=== PATIENT | female | born 1995 | race Caucasian/White ===

== ENCOUNTER 2024-01-14 11:21 | Emergency (ER) | payer BC, SELFPAY ==
[2024-01-14 11:25] VITALS: BP 143/103
[2024-01-14] MEDS: NSS 1000 IV (13:32)
[2024-01-14] MEDS: BENADRYL 25 MG IV (13:33)
[2024-01-14] MEDS: TORADOL 30 MG IV (13:33)
[2024-01-14] MEDS: REGLAN 10 MG IV (13:33)
--- NOTE | 2024-01-14 14:40 | ED.GENMED ---
History of Present Illness
General
Chief Complaint: Headache
Source: patient
Time Seen by Provider: 01/14/24 13:14
Travel History
Have you had any contact with someone who has COVID-19?: No
Do you have any symptoms of coronavirus? Fever > 100 degrees, chills, cough, shortness of breath, sore throat, loss of taste or smell, muscle aches, or headache?: No
History of Present Illness
History of Present Illness:
28-year-old female with past medical history of migraines presenting the emergency department for evaluation at the request of her neurologist for a migraine headache that started on Tuesday with after she had excellently hit the back of her head on
her car trunk on Tuesday. She states that during this time her headache is gradually worsened despite her usual migraine headaches including Ubrelvy. Patient gets Botox injections every 3 months as well. She has been here in the past for headaches
in the past. States she did not experience any loss consciousness, vomiting, visual changes with the head strike. Headache is fairly typical of her usual migraine.
Past History
Past History
ED Past Medical History: GERD, Psychiatric and Other (Migraine headaches, acne)
ED Past Surgical History: Appendectomy, Orthopedic (Knee surgery) and Tonsilectomy
Social History
Tobacco: Non-smoker
Alcohol: None
Drug: None
Personal: Single
Living: with family
Employment: Employed
Family History
Family History: Other (Noncontributory)
Phy Exam
Physical Exam
Physical Exam:
GENERAL: Alert , in no apparent distress
EYE: conjunctiva clear, Pupils 4 mm, EOMI
Head: Normocephalic atraumatic
NECK: Supple,
ENT: mmm.
LUNGS: no acute respiratory distress
NEUROLOGICAL: Alert and oriented x 3, ambulates with steady gait
SKIN: Warm and dry, skin intact.
MUSCULOSKELETAL: well perfused.
PSYCH: Normal and appropriate interaction.
Scores
Heart Failure Risk
Heart Failure Risk Score: Not Applicable
Heart Score for Chest Pain Patients
STEMI patient?: Not applicable
Withdrawal Assessment of Alcohol
Withdrawal Assessment Completed?: Not applicable
Course
Orders/Labs/Results
Orders:
Orders
01/14/24 13:23
0.9% Sodium Chloride 1000 ml [Nss] 1,000 ml IV BOLUS
Diphenhydramine [Benadryl] 25 mg IV NOW STA
Ketorolac [Toradol] 30 mg IV NOW STA
Metoclopramide [Reglan] 10 mg IV NOW STA
Vital Signs
Initial and Last Documented VS:
Initial Vital Signs
Temp Pulse Resp BP Pulse Ox
97.9 F 75 16 143/103 100
01/14/24 11:25 01/14/24 11:25 01/14/24 11:25 01/14/24 11:25 01/14/24 11:25
Last Documented Vital Signs
Temp Pulse Resp BP Pulse Ox
97.9 F 75 16 143/103 100
01/14/24 11:25 01/14/24 11:25 01/14/24 11:25 01/14/24 11:25 01/14/24 11:25
MDM/Problems Addressed
Differential Diagnosis Includes:
Migraine headache, concussion, contusion, I do not have concern for intracranial bleeding or calvarial fracture
MDM/Problems Addressed:
28-year-old female present emergency department for evaluation of headache that has been ongoing for the last 4 days stemming from a mild head injury. Patient stated her neurologist had said patient may need a CT scan however based off the
mechanism and current presentation I have no suspicion for intracranial bleeding. Will treat with a migraine cocktail and fluids with reassessment following. Patient is agreeable with this plan
*Pulse Oximetry
Patient hypoxic: no
*Critical Care Note
Total Time (30-74mins, 75-104mins- exclusive of procedures): Not Applicable
Data Reviewed
Review of Other/Old Records Reveals: Records
Source: patient and records
Patient Management
Escalation/DeEscalation of care consider admission/obs:
Patient reports resolution of her headache and is requesting to be discharged home. She was asking about different abortive medications for migraine headache so I did send a short-term course of rizatriptan to patient's pharmacy. Advised not to
take this with Ubrelvy. Advise close follow-up with her neurologist. Patient is otherwise stable for discharge home as well as aware of return precautions.
ED Attending Note
-
Portions of this chart may have been created with voice recognition software.� Occasional wrong word or��sound alike� substitutions may have occurred due to the inherent limitations of voice recognition software.
Discharge Plan
Departure
Patient Disposition: Home (Routine Discharge)
Date of Disposition: 01/14/24
Time of Disposition: 14:59
Patient with high blood pressure during this ER visit?: Yes
Discharge Problem:
Headache
Instructions: Headache, Adult (DC)
Prescriptions:
New
rizatriptan 10 mg tablet,disintegrating
10 mg PO ONCE PRN (Reason: migraine headache) Qty: 6 0RF
Rx Instructions:
Do not exceed 3 tabs in a 24 hour period
No Action
ytodknrjbtsx-Rn-lhra-minerals [Multiple Vitamin, Womens] 1 EACH tablet
1 ea PO DAILY
spironolactone 100 MG tablet
100 mg PO DAILY
ubrogepant [Ubrelvy] 50 MG tablet
50 mg PO PRN PRN (Reason: migraines)
ondansetron [Zofran ODT] 8 MG tablet,disintegrating
8 mg PO TID PRN (Reason: nausea/vomiting) Qty: 20 0RF
ketorolac 10 MG tablet
10 mg PO Q6HPRN PRN (Reason: pain) Qty: 20 0RF
Referrals:
Jean,Sole E., DO [Family Provider] -
Interventions
Interventions:
*ED COVID-19 Vaccine History Last Done: 01/14/24 11:25
Discharge Date and Time
Print Language: BENINESE
[2024-01-14 15:05] VITALS: BP 113/72
== END 2024-01-14 15:07 | disposition home or self-care (01) ==
LOC: EMR 11:21
PROVIDERS: EMERGENCY PHYSICIAN Emergency Medicine; FAMILY PHYSICIAN Family Medicine
DX: R51.9 Headache, unspecified (principal); W22.8XXA Striking against or struck by other objects, initial encounter; R03.0 Elevated blood-pressure reading, without diagnosis of hypertension; K21.9 Gastro-esophageal reflux disease without esophagitis; Z91.048 Other nonmedicinal substance allergy status
CPT/HCPCS: 99284; 96374; 96375 ×2; 96361

== ENCOUNTER 2024-02-25 13:10 | Emergency (ER) | payer BC, SELFPAY ==
[2024-02-25 13:21] VITALS: BP 123/90
[2024-02-25 13:50] LABS: % Basophils 0.6 % (0-2); % Immature Granulocytes 0.2 % (0-0.5); % Lymphocytes 29.8 % (20.5-51.1); % Neutrophils 62.4 % (42.2-75.2); Absolute Lymphocytes 1.5 10^3/uL (1.2-3.4); Absolute Monocytes 0.4 10^3/uL (0.1-0.6); Absolute Neutrophils 3.1 10^3/uL (1.4-6.5); Hematocrit 39.9 % (37.0-47.0); Hemoglobin 14.3 g/dL (12.0-16.0); Mean Corp Hgb Conc. 35.8 g/dL (33.0-37.0); Mean Corpuscular Hgb 30.2 pg (27.0-31.0); Mean Corpuscular Volume 84.2 fL (81.0-99.0); Mean Platelet Volume 8.6 fL (7.4-10.4); Nucleated Red Blood Cells % 0 %; Platelet Count 264 10^3/uL (130-400); Red Blood Cell Count 4.74 10^6/uL (4.20-5.40); Red Cell Dist. Width 12.9 % (11.5-14.5)
[2024-02-25 14:04] LABS: D-Dimer 0.58 ug/mlFEU (0.00-0.50)
[2024-02-25 14:15] LABS: ALT (SGPT) 15 U/L (0-35); AST (SGOT) 22 U/L (14-36); Albumin 4.6 g/dl (3.5-5.0); Alkaline Phosphatase 62 U/L (38-126); Blood Urea Nitrogen 17 mg/dl (7-17); Calcium 10.4 mg/dl (8.4-10.2); Carbon Dioxide 21 mmol/L (22-30); Chloride 107 mmol/L (98-107); Glucose 104 mg/dl (70-99); Potassium 3.7 mmol/L (3.5-5.1); Sodium 139 mmol/L (135-145); Total Bilirubin 1.6 mg/dl (0.2-1.3); Total Protein 7.4 g/dl (6.3-8.2); eGFR > 60.00
[2024-02-25 14:21] LABS: Troponin I < 0.012 ng/ml
--- NOTE | 2024-02-25 15:52 | ED.GENMED ---
History of Present Illness
<Malathi Fox NP - Last Filed: 02/26/24 15:43>
General
Chief Complaint: Chest Pain
Source: patient
Exam Limitations: none
Time Seen by Provider: 02/25/24 15:43
Nursing documentation reviewed up to this point in time: agreed with
Travel History
Have you had any contact with someone who has COVID-19?: No
Do you have any symptoms of coronavirus? Fever > 100 degrees, chills, cough, shortness of breath, sore throat, loss of taste or smell, muscle aches, or headache?: No
History of Present Illness
History of Present Illness:
Patient to ED with complaint of left chest pain with numbness of left arm. Symptoms started last PM and continue today. Reports feeling SOB. No prior history of same.
Past History
<Malathi Fox NP - Last Filed: 02/26/24 15:43>
Past History
ED Past Medical History: GERD, Psychiatric and Other (Migraine headaches, acne)
ED Past Surgical History: Appendectomy, Orthopedic (Knee surgery) and Tonsilectomy
Social History
Tobacco: Non-smoker
Alcohol: None
Drug: None
Personal: Single
Living: with family
Employment: Employed
Family History
Family History: Other (Noncontributory)
Review of Systems
<Malathi Fox NP - Last Filed: 02/26/24 15:43>
Review of Systems
Allergies reviewed?: Yes
All Other Systems: ROS reviewed and negative except as documented in HPI and ROS
Constitutional: Reports no symptoms
EENT: Reports no symptoms
Respiratory: Reports trouble breathing
Cardiac: Reports chest pain
ABD/GI: Reports no symptoms
: Reports no symptoms
Musculoskeletal: Reports no symptoms
Skin: Reports no symptoms
Neurological: Reports no symptoms
Psychiatric: Reports no symptoms
Phy Exam
<Malathi Fox DISPENSER OPERATOR - Last Filed: 02/26/24 15:43>
General Physical Exam
General Presentation: well appearing and no apparent distress
General age: appears stated age
General Skin: warm and dry
General Habitus: normal
General Mental: alert
Cardiovascular Exam
Cardiovascular Exam: regular rate/rhythm and no edema
Musculoskeletal Exam
Musculoskeletal Exam: full ROM and no edema
Skin Exam
Skin Exam: normal color and warm/dry
Psychiatric Exam
Psychiatric Exam: normal mood/affect
Scores
<Malathi Fox DISPENSER OPERATOR - Last Filed: 02/26/24 15:43>
Heart Score for Chest Pain Patients
STEMI patient?: Not applicable
Course
<Malathi Fox DISPENSER OPERATOR - Last Filed: 02/26/24 15:43>
Orders/Labs/Results
Orders:
Orders
02/25/24 13:13
EKG [Electrocardiogram (*1)] Urgent
Reason for Study: Chest Pain
EKG- Treatment ONCE
02/25/24 13:42
Complete Blood Count/With Diff Urgent
Comprehensive Metabolic Panel Urgent
DDimer [D-Dimer] Urgent
Troponin I Urgent
02/25/24 15:51
CT Chest Pe Study Urgent
Comment:
Reason For Exam: chest pain, elevated ddimer
0.9% Sodium Chloride 1000 ml [Nss] 1,000 ml IV BOLUS
Ketorolac [Toradol] 30 mg IV NOW STA
Abnormal Lab Results
02/25/24
13:42
D-Dimer 0.58 H ug/mlFEU
(0.00-0.50)
Carbon Dioxide 21 L mmol/L
(22-30)
Glucose 104 H mg/dl
(70-99)
Calcium 10.4 H mg/dl
(8.4-10.2)
Total Bilirubin 1.6 H mg/dl
(0.2-1.3)
02/25/24 13:42
02/25/24 13:42
Vital Signs
Initial and Last Documented VS:
Initial Vital Signs
Temp Pulse Resp BP Pulse Ox
97.8 F 99 20 123/90 100
02/25/24 13:21 02/25/24 13:21 02/25/24 13:21 02/25/24 13:21 02/25/24 13:21
Last Documented Vital Signs
Temp Pulse Resp BP Pulse Ox
97.8 F 69 18 119/82 100
02/25/24 13:21 02/25/24 17:15 02/25/24 17:15 02/25/24 17:00 02/25/24 17:15
<Krystina Palma MD - Last Filed: 02/25/24 16:03>
Orders/Labs/Results
Orders:
Orders
02/25/24 13:13
EKG [Electrocardiogram (*1)] Urgent
Reason for Study: Chest Pain
EKG- Treatment ONCE
02/25/24 13:42
Complete Blood Count/With Diff Urgent
Comprehensive Metabolic Panel Urgent
DDimer [D-Dimer] Urgent
Troponin I Urgent
02/25/24 15:51
CT Chest Pe Study Urgent
Comment:
Reason For Exam: chest pain, elevated ddimer
0.9% Sodium Chloride 1000 ml [Nss] 1,000 ml IV BOLUS
Ketorolac [Toradol] 30 mg IV NOW STA
Abnormal Lab Results
02/25/24
13:42
D-Dimer 0.58 H ug/mlFEU
(0.00-0.50)
Carbon Dioxide 21 L mmol/L
(22-30)
Glucose 104 H mg/dl
(70-99)
Calcium 10.4 H mg/dl
(8.4-10.2)
Total Bilirubin 1.6 H mg/dl
(0.2-1.3)
02/25/24 13:42
02/25/24 13:42
Vital Signs
Initial and Last Documented VS:
Initial Vital Signs
Temp Pulse Resp BP Pulse Ox
97.8 F 99 20 123/90 100
02/25/24 13:21 02/25/24 13:21 02/25/24 13:21 02/25/24 13:21 02/25/24 13:21
Last Documented Vital Signs
Temp Pulse Resp BP Pulse Ox
97.8 F 69 18 119/82 100
02/25/24 13:21 02/25/24 17:15 02/25/24 17:15 02/25/24 17:00 02/25/24 17:15
<Malathi Fox NP - Last Filed: 02/26/24 15:43>
*Radiology
Radiology exam reviewed: radiology read reviewed
*Pulse Oximetry
Patient hypoxic: no
*Critical Care Note
Total Time (30-74mins, 75-104mins- exclusive of procedures): Not Applicable
ED Attending Note
<Malathi Fox NP - Last Filed: 02/26/24 15:43>
-
Portions of this chart may have been created with voice recognition software.� Occasional wrong word or��sound alike� substitutions may have occurred due to the inherent limitations of voice recognition software.
<Krystina Palma MD - Last Filed: 02/25/24 16:03>
ED Attending Note
Patient seen and examined by attending physician: Yes
I performed the substantive portion of visit, reviewed & personally made and approve the management plan that is documented in note by myself or CHRISTA.: Yes
ED Attending Note:
Patient appears well and comfortable. Heart sounds regular lungs are clear.
Discharge Plan
Departure
Patient Disposition: Home (Routine Discharge)
Date of Disposition: 02/25/24
Time of Disposition: 18:27
Patient with high blood pressure during this ER visit?: No
Condition: Good
Covid-19: Not Applicable
Discharge Problem:
Chest pain
Instructions: Chest Pain PCP Follow Up
Prescriptions:
No Action
wqwkioponoju-Bv-dpsq-minerals [Multiple Vitamin, Womens] 1 EACH tablet
1 ea PO DAILY
spironolactone 100 MG tablet
100 mg PO DAILY
ubrogepant [Ubrelvy] 50 MG tablet
50 mg PO PRN PRN (Reason: migraines)
ondansetron [Zofran ODT] 8 MG tablet,disintegrating
8 mg PO TID PRN (Reason: nausea/vomiting) Qty: 20 0RF
ketorolac 10 MG tablet
10 mg PO Q6HPRN PRN (Reason: pain) Qty: 20 0RF
rizatriptan 10 mg tablet,disintegrating
10 mg PO ONCE PRN (Reason: migraine headache) Qty: 6 0RF
Rx Instructions:
Do not exceed 3 tabs in a 24 hour period
Referrals:
Angelica Bearden PA-C [Family Provider] - Follow up in 2-3 days
Interventions
Interventions:
*General Assessment Last Done: 02/25/24 13:21
*ED COVID-19 Vaccine History Last Done: 02/25/24 13:21
*Nursing Disposition Last Done: 02/25/24 18:38
ED- Cardiac Assessment Last Done: 02/25/24 16:39
Discharge Date and Time
Discharge Date/Time: 02/25/24 18:39
Print Language: INDONESIAN
[2024-02-25] MEDS: NSS 1000 IV (16:00)
[2024-02-25] MEDS: TORADOL 30 MG IV (16:01)
[2024-02-25 16:05] VITALS: BP 124/92
[2024-02-25 17:00] VITALS: BP 119/82
== END 2024-02-25 18:39 | disposition home or self-care (01) ==
LOC: EMR 13:10
PROVIDERS: Emergency Medicine; EMERGENCY PHYSICIAN Emergency Medicine; FAMILY PHYSICIAN Physician Assistant Medical
DX: R07.89 Other chest pain (principal); K21.9 Gastro-esophageal reflux disease without esophagitis
CPT/HCPCS: 99284; 96374; 96361; 71275; 80053; 84484; 85025; 85379; 93005; Q9967

== ENCOUNTER → 2024-10-22 08:56 | Outpatient (REF) | payer OTHER, SELFPAY | LOC: RCS 08:56 | PROVIDERS: ATTENDING PHYSICIAN Nurse Practitioner Adult Health; FAMILY PHYSICIAN Physician Assistant Medical | DX: I49.9 Cardiac arrhythmia, unspecified (principal) | CPT/HCPCS: 93005 ==

== ENCOUNTER → 2024-10-31 08:10 | Outpatient (REF) | payer OTHER, SELFPAY | LOC: RCS 08:10 | PROVIDERS: ATTENDING PHYSICIAN Nurse Practitioner Adult Health | DX: I49.9 Cardiac arrhythmia, unspecified (principal) | CPT/HCPCS: 93005 ==

== ENCOUNTER → 2024-11-06 08:28 | Outpatient (REF) | payer OTHER, SELFPAY | LOC: RCS 08:28 | PROVIDERS: ATTENDING PHYSICIAN Nurse Practitioner Adult Health; FAMILY PHYSICIAN Physician Assistant Medical | DX: I49.9 Cardiac arrhythmia, unspecified (principal) | CPT/HCPCS: 93005 ==

== ENCOUNTER → 2024-11-13 06:29 | Outpatient (REF) | payer OTHER, SELFPAY | LOC: RCS 06:29 | PROVIDERS: ATTENDING PHYSICIAN Nurse Practitioner Adult Health; FAMILY PHYSICIAN Physician Assistant Medical | DX: I49.9 Cardiac arrhythmia, unspecified (principal) | CPT/HCPCS: 93005 ==

== ENCOUNTER → 2024-11-21 09:35 | Outpatient (REF) | payer OTHER, SELFPAY | LOC: RCS 09:35 | PROVIDERS: ATTENDING PHYSICIAN Nurse Practitioner Adult Health; FAMILY PHYSICIAN Physician Assistant Medical | DX: I49.9 Cardiac arrhythmia, unspecified (principal) | CPT/HCPCS: 93005 ==